=== PATIENT | female | born 1975 | race African-American/Black ===

== ENCOUNTER 2017-05-24 16:11 | Emergency (ER) | payer SELFPAY ==
[~2017-05-24] VITALS: Ht 167.6 cm; Wt 66.0 kg
[2017-05-24 16:23] VITALS: BP 137/86
== END 2017-05-24 22:50 | disposition left against medical advice (07) ==
LOC: ER 16:46
DX: Z53.21 Procedure and treatment not carried out due to patient leaving prior to being seen by health care provider (principal)